=== PATIENT | female | born 1930 | race Caucasian/White ===

== ENCOUNTER 2017-06-03 15:43 | Emergency (ER) | payer MEDICARE ==
[~2017-06-03] VITALS: Ht 149.9 cm; Wt 61.2 kg
[2017-06-03 15:43] VITALS: BP_SYST 104
[2017-06-03] MEDS ORDERED: AZITHROMYCIN 250 MG TABLET PO ONE (18:00)
[2017-06-03] MEDS ORDERED: PREDNISONE 20 MG TABLET PO ONE (18:00)
[2017-06-03 19:50] VITALS: BP_SYST 128
== END 2017-06-03 19:50 ==
LOC: SED 15:43
DX: F41.9 Anxiety disorder, unspecified (principal); J44.9 Chronic obstructive pulmonary disease, unspecified; R09.02 Hypoxemia; N18.6 End stage renal disease; Z99.2 Dependence on renal dialysis; Z88.0 Allergy status to penicillin
CPT/HCPCS: 71010; 93005; 99283; J7512; Q0144

== ENCOUNTER 2019-07-26 07:58 | Inpatient (IN) | payer MEDICARE, OTHER ==
[~2019-07-26] VITALS: Ht 152.4 cm; Wt 68.2 kg
[2019-07-26 08:00] VITALS: BP_SYST 143
--- NOTE | 2019-07-26 08:05 | NUR ---
Patient to ER bed 6 to gown for evaluation. Side rails up.
--- NOTE | 2019-07-26 08:10 | NUR ---
Pt brought by ambulance SOB hx COPD, receiving breathing tx. Pt able to follow commands, O2 WNL.
[2019-07-26] MEDS ORDERED: IPRATROPIUM BROM 0.5 MG/2.5 ML VIAL.NEB (ATROVENT) INH ONE (08:15)
[2019-07-26] MEDS ORDERED: ALBUTEROL SULFATE 0.083% 2.5 MG/3 ML VIAL.NEB INH ONE (08:15)
--- NOTE | 2019-07-26 08:15 | NUR ---
ER at bedside examining patient.
--- NOTE | 2019-07-26 08:45 | NUR ---
EKG performed at by Morro YE. Physician given copy of EKG for review.
--- NOTE | 2019-07-26 08:45 | NUR ---
24 gauge angiocath placed to L hand. Use of asceptic technique. Opsite placed over site. Blood return noted. Blood for lab drawn from site. Flushed with 10 cc of normal saline. No evidence of infiltration noted. Patient tolerated well.
--- NOTE | 2019-07-26 09:00 | NUR ---
pt currently getting a breathing tx
[2019-07-26 09:03] LABS: BASOPHILS % (AUTO) 0.7 % (0.0-2.0); EOSINOPHILS # (AUTO) 0.1 K/uL (0.0-0.4); EOSINOPHILS % (AUTO) 1.1 % (0.0-4.0); HEMATOCRIT 42.8 % (36-48); HEMOGLOBIN 13.9 g/dL (12.0-16.0); LYMPHOCYTES % (AUTO) 19.2 % (20.5-51.5); MEAN CORPUSCULAR HEMOGLOBIN 32 pg (27-31); MEAN CORPUSCULAR HGB CONC 33 % (32-36); MEAN CORPUSCULAR VOLUME 98 fL (79.0-98.0); MONOCYTES # (AUTO) 0.3 K/uL (0.0-1.0); MONOCYTES % (AUTO) 6.7 % (1.7-9.3); NEUTROPHILS # (AUTO) 3.6 K/uL (1.8-7.7); NEUTROPHILS % (AUTO) 72.3 % (40.0-70.0); PLATELET COUNT (AUTO) 207 K/uL (130-430); RED BLOOD CELL COUNT(AUTO) 4.39 MIL/uL (4.2-6.2); RED CELL DISTRIBUTION WIDTH 15.4 % (9.0-15.0)
[2019-07-26 09:22] LABS: ANION GAP 7 (5-15); CALCIUM 9.1 mg/dL (8.4-11.0); CHLORIDE 103 mmol/L (98-107); CREATININE 3.82 mg/dL (0.55-1.30); GLUCOSE 107 mg/dL (70-99); POTASSIUM 4.4 mmol/L (3.5-5.1); SODIUM SERUM 140 mmol/L (136-145); UREA NITROGEN, BLOOD 21 mg/dL (8-21)
[2019-07-26] MEDS ORDERED: THEO600T PO (09:26)
[2019-07-26] MEDS ORDERED: ALBU8.5H8 INH (09:26)
[2019-07-26] MEDS ORDERED: SEREVENT INH (09:26)
[2019-07-26] MEDS ORDERED: LEVOFLOXACIN 500 MG/D5W 100 ML IV ONE (09:45)
[2019-07-26] MEDS ORDERED: DOCUSATE SODIUM 100 MG CAPSULE PO PRN (10:00)
[2019-07-26] MEDS ORDERED: ACETAMINOPHEN 650 MG/20.3 ML UDC PO PRN (10:00)
[2019-07-26] MEDS ORDERED: LevALBUTEROL HCL 1.25 MG/0.5 ML *CONC.* VIAL.NEB (XOPENEX CONC.) INH PRN (10:00)
[2019-07-26] MEDS ORDERED: NITROGLYCERIN 0.4 MG TAB.SUBL SL PRN (10:00)
[2019-07-26] MEDS ORDERED: ONDANSETRON HCL 4 MG/2 ML VIAL IVP PRN (10:00)
[2019-07-26] MEDS ORDERED: ALBUTEROL SULFATE 0.083% 2.5 MG/3 ML VIAL.NEB INH PRN (10:00)
[2019-07-26 10:06] LABS: TOTAL BILIRUBIN 0.4 mg/dL (0.0-1.0)
[2019-07-26 10:07] LABS: ALANINE AMINOTRANSFERASE 25 U/L (12-78); ALBUMIN 3.6 g/dL (3.4-4.8); ASPARTATE AMINOTRANSFERASE 19 U/L (10-37)
--- NOTE | 2019-07-26 10:08 | NUR ---
called for a tele bed.
--- NOTE | 2019-07-26 10:22 | NUR ---
second call for tele bed
--- NOTE | 2019-07-26 10:48 | NUR ---
CONSULTATION PAGED/CALLED Reason for Consultation: [] HD MGMT Person Who was Notified: [] DR PICKENS Consulting Physician: [] DR PICKENS Assembly Line Leader Specialty: [] X RAY EQUIPMENT SERVICER Ordering Physician: [] DR Radha LE
--- NOTE | 2019-07-26 10:49 | NUR ---
CONSULTATION PAGED/CALLED Reason for Consultation: [] ELEVATED TROP Person Who was Notified: [] MATILDA Consulting Physician: [] DR MARIN[employer]S GROUP Head Inspector And Center Marker Specialty: [] CARDIO Ordering Physician: [] DR Radha LE
--- NOTE | 2019-07-26 10:50 | NUR ---
CONSULTATION PAGED/CALLED Reason for Consultation: [] COPD EXAC Person Who was Notified: [] ANAMARIA Consulting Physician: [] DR NIEVES TOPPER PRESS OPERATOR AUTOMATIC FOR DR [facility] Warp Clamper Specialty: [] PULMO Ordering Physician: [] DR Radha LE
--- NOTE | 2019-07-26 11:10 | NUR ---
ADMITTING MEDSURG RECEIVED REPORT FROM ER NURSE. PT STABLE. NO ACUTE DISTRESS NOTED. DENIES SOB. DENIES CHEST PAIN. IV LINE INTACT AND PATENT. NO SIGNS OF INFILTRATION. BED ALARM ON. CALL LIGHT IN REACH. FAMILY AT BEDSIDE. ALL NEEDS MET. FALL AND ASPIRATION PRECAUTIONS NOTED. CONTINUE TO MONITOR. Addendum: 07/26/19 at 1813 by nAeta Denis RN PATIENT IS TELE NOT MEDSURG
--- NOTE | 2019-07-26 11:10 | NUR ---
Patient will be admitted to care of Dr Milan. Admitted to Med Surg/Tele unit. Will go to room 122B. Belongings list completed. Complete and up to date summary report printed. SBAR report to be given at bedside with opportunity for questions. Report given to Aneta YE
[2019-07-26 11:19] VITALS: BP_SYST 127
[2019-07-26] MEDS: cefTRIAXone 1 GM in D5W 50 ML IV SCH (12:50)
--- NOTE | 2019-07-26 12:50 | NUR ---
MEDICATIONS MEDICATIONS ADMINISTERED ORDERED. TOLERATED WELL. EDUCATION GIVEN. NO ACUTE DISTRESS NOTED. DENIES SOB. DENIES CHEST PAIN. HOB ELEVATED. CALL LIGHT IN REACH. ALL NEEDS MET. CONTINUE TO MONITOR. FALL AND ASPIRATION PRECAUTIONS IN PLACE.
[2019-07-26] MEDS: NORMAL SALINE 5 ML DISP.SYRIN IVF SCH ×2 (14:42→21:50)
--- NOTE | 2019-07-26 15:00 | NUR ---
NOTE PATIENT STABLE. READING BOOK IN BED. REQUESTED FOR GERMAN. ALL NEEDS MET. CALL LIGHT IN REACH. CONT TO MONITOR.
[2019-07-26 16:46] VITALS: BP_SYST 127
--- NOTE | 2019-07-26 17:00 | NUR ---
NOTE PATIENT RESTING IN BED. EASILY AROUSABLE. DENIES ANY PAIN. NO ACUTE DISTRESS. ALL NEEDS MET. CONT TO MONITOR. CALL LIGHT IN REACH
--- NOTE | 2019-07-26 18:54 | NUR ---
CLOSING NOTE PATIENT READING IN BED. NO ACUTE DISTRESS NOTED. BED ALARM ON. CALL LIGHT IN REACH. ALL NEEDS MET. FALL AND ASPIRATION PRECAUTIONS IN PLACE. WILL ENDORSE TO NOC NURSE.
--- NOTE | 2019-07-26 19:15 | NUR ---
OPENING NOTES RECEIVED PATIENT IN BED AAO X4. BREATHING UNLABORED. DENIES ANY PAIN AT THIS TIME. BED IN LOWEST LOCKED POSITION. CALL LIGHT WITH IN REACH. BED ALARM ON.
--- NOTE | 2019-07-26 19:25 | NUR ---
OOB PATIENT ASSISTED OUT OF BED TO THE REST ROOM AND HYGIENE CARE.
[2019-07-26 21:46] VITALS: BP_SYST 115
[2019-07-26] MEDS: methylPREDNISolone SOD SUCC 40 MG/ML VIAL IVP SCH (21:49)
[2019-07-26] MEDS: CARVEDILOL 6.25 MG TABLET (COREG) PO SCH (21:50)
--- NOTE | 2019-07-26 21:50 | NUR ---
MED PASS PATIENT DUE MEDICATIONS GIVEN AND TOLERATED. VITAL SIGNS STABLE. CALL LIGHT WITH IN REACH.
--- NOTE | 2019-07-27 00:30 | NUR ---
ROUNDS PATIENT RESTING IN BED. NO DISTRESS NOTED CALL LIGHT WITH IN REACH.
--- NOTE | 2019-07-27 03:00 | NUR ---
ROUNDS PATIENT CONDITION UNCHANGED.
[2019-07-27] MEDS: NORMAL SALINE 5 ML DISP.SYRIN IVF SCH ×3 (06:00→20:25)
[2019-07-27 06:13] LABS: BASOPHILS % (AUTO) 0.3 % (0.0-2.0); HEMATOCRIT 43.1 % (36-48); HEMOGLOBIN 13.9 g/dL (12.0-16.0); LYMPHOCYTES # (AUTO) 0.2 K/uL (1.0-5.5); LYMPHOCYTES % (AUTO) 3.6 % (20.5-51.5); MEAN CORPUSCULAR HEMOGLOBIN 32 pg (27-31); MEAN CORPUSCULAR HGB CONC 32 % (32-36); MEAN CORPUSCULAR VOLUME 99 fL (79.0-98.0); MONOCYTES # (AUTO) 0.1 K/uL (0.0-1.0); NEUTROPHILS # (AUTO) 6.4 K/uL (1.8-7.7); NEUTROPHILS % (AUTO) 95.1 % (40.0-70.0); PLATELET COUNT (AUTO) 212 K/uL (130-430); RED BLOOD CELL COUNT(AUTO) 4.38 MIL/uL (4.2-6.2); RED CELL DISTRIBUTION WIDTH 15.7 % (9.0-15.0); WHITE BLOOD COUNT (AUTO) 6.8 K/uL (4.8-10.8)
[2019-07-27 06:18] LABS: ANION GAP 7 (5-15); CALCIUM 8.7 mg/dL (8.4-11.0); CHLORIDE 100 mmol/L (98-107); CREATININE 4.58 mg/dL (0.55-1.30); GLUCOSE 164 mg/dL (70-99); POTASSIUM 5.4 mmol/L (3.5-5.1); SODIUM SERUM 138 mmol/L (136-145); UREA NITROGEN, BLOOD 31 mg/dL (8-21)
[2019-07-27 06:30] LABS: ALANINE AMINOTRANSFERASE 21 U/L (12-78); ALBUMIN 3.4 g/dL (3.4-4.8); ASPARTATE AMINOTRANSFERASE 16 U/L (10-37); TOTAL BILIRUBIN 0.2 mg/dL (0.0-1.0)
--- NOTE | 2019-07-27 06:55 | NUR ---
CLOSING NOTES PATIENT RESTING IN BED. BREATHING UNLABORED ON 3L NC. PATIENT NEEDS ATTENDED. BED IN LOWEST LOCKED POSITION WITH ALARM ON. CALL LIGHT WITH IN REACH.
--- NOTE | 2019-07-27 08:00 | NUR ---
awake alert oriented x4 no pain iv access intacl breakfast served with good appetite
[2019-07-27] MEDS: CARVEDILOL 6.25 MG TABLET (COREG) PO SCH ×2 (09:00→21:00)
--- NOTE | 2019-07-27 10:00 | NUR ---
dialysis started tolerated good
[2019-07-27] MEDS: methylPREDNISolone SOD SUCC 40 MG/ML VIAL IVP SCH ×2 (10:10→20:25)
[2019-07-27] MEDS: ASPIRIN 81 MG TAB.CHEW PO SCH (10:11)
[2019-07-27] MEDS: AZITHROMYCIN 250 MG TABLET PO SCH (10:13)
[2019-07-27] MEDS: cefTRIAXone 1 GM in D5W 50 ML IV SCH (10:15)
[2019-07-27] MEDS: ENOXAPARIN SODIUM 30 MG/0.3 ML SYRINGE SUBCUT SCH (10:25)
[2019-07-27 12:17] VITALS: BP_SYST 119
--- NOTE | 2019-07-27 13:00 | NUR ---
dialysis is over out was 2 liters per dialysis nurse no pain
--- NOTE | 2019-07-27 14:00 | NUR ---
appetite both for lunch and breakfast was good consumed 75 %
[2019-07-27 16:19] VITALS: BP_SYST 102
--- NOTE | 2019-07-27 16:30 | NUR ---
slept on and off
--- NOTE | 2019-07-27 17:57 | NUR ---
dinner served set up done self feeding with fair appetite
--- NOTE | 2019-07-27 19:20 | NUR ---
OPENING NOTES RECEIVED PATIENT IN BED AWAKE. DINNER TRAY UNTOUCHED PER PATIENT SHE DOES NOT FEEL LIKE EATING AT THIS TIME. TOLD PATIENT WILL LEAVE TRAY AT BED SIDE JUST IN CASE SHE CHANGE HER MIND. BED IN LOWEST LOCKED POSITION WITH ALARM ON. CALL LIGHT WITH IN REACH.
[2019-07-27 20:20] VITALS: BP_SYST 98
--- NOTE | 2019-07-27 20:25 | NUR ---
MED PASS PATIENT DUE MEDICATION GIVEN. VITAL SIGNS STABLE. DENIES PAIN. CALL LIGHT WITH IN REACH.
[2019-07-28 00:26] VITALS: BP_SYST 98
--- NOTE | 2019-07-28 01:00 | NUR ---
ROUNDS PATIENT RESTING IN BED. NO DISTRESS NOTED. CALL LIGHT WITH IN REACH. VITAL SIGNS STABLE.
--- NOTE | 2019-07-28 03:00 | NUR ---
ROUNDS PATIENT RESTING IN BED. BREATHING UNLABORED. CALL LIGHT WITH IN REACH.
--- NOTE | 2019-07-28 05:00 | NUR ---
ROUNDS PATIENT AWAKE IN BED. DENIES PAIN. NO DISTRESS NOTED. CALL LIGHT WITH IN REACH.
[2019-07-28] MEDS: NORMAL SALINE 5 ML DISP.SYRIN IVF SCH ×3 (06:00→20:56)
--- NOTE | 2019-07-28 06:28 | NUR ---
CLOSING NOTES PATIENT RESTING IN BED. BREATHING UNLABORED. PATIENT NEEDS ATTENDED. BED IN LOWEST LOCKED POSITION. CALL LIGHT WITH IN REACH.
--- NOTE | 2019-07-28 08:00 | NUR ---
remains very quiet today son has been calling re mothers condtion small appetite for breakfast
[2019-07-28] MEDS: ENOXAPARIN SODIUM 30 MG/0.3 ML SYRINGE SUBCUT SCH (09:00)
[2019-07-28] MEDS: CARVEDILOL 6.25 MG TABLET (COREG) PO SCH ×2 (09:00→20:55)
--- NOTE | 2019-07-28 10:00 | NUR ---
seen by Md explained to patient that she has fluid in the lung and why she has to remain with oxygen
[2019-07-28] MEDS: ASPIRIN 81 MG TAB.CHEW PO SCH (10:52)
[2019-07-28] MEDS: methylPREDNISolone SOD SUCC 40 MG/ML VIAL IVP SCH ×2 (10:52→20:55)
[2019-07-28] MEDS: AZITHROMYCIN 250 MG TABLET PO SCH (10:53)
[2019-07-28] MEDS: cefTRIAXone 1 GM in D5W 50 ML IV SCH (10:55)
[2019-07-28 12:46] VITALS: BP_SYST 100
[2019-07-28 16:28] VITALS: BP_SYST 119
--- NOTE | 2019-07-28 18:32 | NUR ---
dinner serve appetite fair
--- NOTE | 2019-07-28 18:34 | NUR ---
son updated regarding condition was happy
--- NOTE | 2019-07-28 19:10 | NUR ---
OPENING NOTES RECEIVED PATIENT IN BED AWAKE VISITOR AT BEDSIDE. BREATHING UNLABORED ON 02 4L NC. NO C/O PAIN AT THIS TIME. BED IN LOWEST LOCKED POSITION. CALL LIGHT WITH IN REACH.
[2019-07-28 20:49] VITALS: BP_SYST 115
--- NOTE | 2019-07-28 20:55 | NUR ---
MED PASS PATIENT DUE MEDICATIONS GIVEN. VITAL SIGNS STABLE. HS SNACK PROVIDED AND TOLERATED.
[2019-07-29 00:21] VITALS: BP_SYST 106
--- NOTE | 2019-07-29 00:45 | NUR ---
ROUNDS PATIENT AWAKE IN BED. NO DISTRESS NOTED. DENIES PAIN. CALL LIGHT WITH IN REACH. VITAL SIGNS STABLE.
--- NOTE | 2019-07-29 03:45 | NUR ---
ROUNDS PATIENT RESTING EYES CLOSED. BREATHING UNLABORED. CALL LIGHT WITH IN REACH.
--- NOTE | 2019-07-29 05:45 | NUR ---
BM PATIENT HAD BOWEL MOVEMENT SOFT BROWN STOOL MODERATE AMOUNT. INCONTINENCE CARE RENDERED. CHUX CHANGED. PATIENT PROVIDED WITH NEW GOWN AND BLANKETS.
[2019-07-29] MEDS: NORMAL SALINE 5 ML DISP.SYRIN IVF SCH ×3 (06:00→22:00)
[2019-07-29 06:20] LABS: ALANINE AMINOTRANSFERASE 20 U/L (12-78); ANION GAP 9 (5-15); ASPARTATE AMINOTRANSFERASE 7 U/L (10-37); CALCIUM 8.8 mg/dL (8.4-11.0); CHLORIDE 93 mmol/L (98-107); GLUCOSE 135 mg/dL (70-99); POTASSIUM 5.2 mmol/L (3.5-5.1); SODIUM SERUM 128 mmol/L (136-145); TOTAL BILIRUBIN 0.3 mg/dL (0.0-1.0); UREA NITROGEN, BLOOD 47 mg/dL (8-21)
--- NOTE | 2019-07-29 06:54 | NUR ---
Nutrition Update Andrea Scale 17 noted. Pt admitted for COPD exacerbation Diet: Renal Standard BMI: 27.3 kg/m2 RD to follow per nutrition care standards.
--- NOTE | 2019-07-29 07:30 | NUR ---
OPENING NOTES: PATIENT IS ASLEEP IN BED. NO SIGNS OF DISTRESS OR SHORTNESS OF BREATH NOTED. PATIENT IS TOLERATING OXYGEN AT 4 L NASAL CANNULA. IV SITE IS PATENT WITH NO SIGNS OF INFILTRATION. PATIENT IN STABLE CONDITION. SAFETY, FALL AND ASPIRATION PRECAUTIONS ARE IN PLACE. BED LOCKED IN LOWEST POSITION WITH CALL LIGHT IN REACH. WILL CONTINUE TO MONITOR PATIENT FOR ANY CHANGES.
[2019-07-29 08:00] VITALS: BP_SYST 104
[2019-07-29] MEDS: ASPIRIN 81 MG TAB.CHEW PO SCH (09:18)
[2019-07-29] MEDS: cefTRIAXone 1 GM in D5W 50 ML IV SCH (09:18)
[2019-07-29] MEDS: AZITHROMYCIN 250 MG TABLET PO SCH (09:18)
[2019-07-29] MEDS: methylPREDNISolone SOD SUCC 40 MG/ML VIAL IVP SCH ×2 (09:18→21:04)
[2019-07-29] MEDS: CARVEDILOL 6.25 MG TABLET (COREG) PO SCH ×2 (09:19→21:00)
[2019-07-29] MEDS: ENOXAPARIN SODIUM 30 MG/0.3 ML SYRINGE SUBCUT SCH (09:20)
--- NOTE | 2019-07-29 10:15 | NUR ---
RN ROUNDS: PATIENT IS AWAKE AND ALERT x2 LAYING DOWN IN BED. FAMILY AT BEDSIDE. PATIENT DENIES ANY PAIN AT THE MOMENT. NO SIGNS OF DISTRESS OR SHORTNESS OF BREATH NOTED. PATIENT IN STABLE CONDITION. WILL CONTINUE TO MONITOR PATIENT FOR ANY CHANGES.
--- NOTE | 2019-07-29 10:15 | NUR ---
PAGED PAGED MYRTLE GONZALES AT [phone] SPOKE WITH KENNETH.
--- NOTE | 2019-07-29 10:20 | NUR ---
CALLED: SPOKE WITH DR. MAR. AWARE OF CRITICAL LABS. NEW ORDERS GIVEN.
--- NOTE | 2019-07-29 10:30 | NUR ---
MD ROUNDS: DR. PICKENS MAKING HIS ROUNDS. AWARE OF PATIENT'S CONDITION. NEW ORDERS GIVEN.
--- NOTE | 2019-07-29 12:05 | NUR ---
RN ROUNDS: PATIENT IS ASLEEP IN BED. NO SIGNS OF DISTRESS OR SHORTNESS OF BREATH NOTED. PATIENT IS TOLERATING BIPAP WELL. PATIENT IN STABLE CONDITION. WILL CONTINUE TO MONITOR PATIENT FOR ANY CHANGES.
[2019-07-29 12:39] VITALS: BP_SYST 93
--- NOTE | 2019-07-29 14:15 | NUR ---
RN ROUNDS: PATIENT IS ASLEEP LAYING DOWN IN BED. PATIENT IS TOLERATING BIPAP WELL. NO SIGNS OF DISTRESS OR SHORTNESS OF BREATH NOTED. PATIENT IN STABLE CONDITION. WILL CONTINUE TO MONITOR PATIENT FOR ANY CHANGES.
[2019-07-29] MEDS ORDERED: HEPARIN SODIUM,PORCINE 5000 UNITS/ML VIAL MC ONE ×3 (14:45→15:15)
[2019-07-29] MEDS ORDERED: HEPARIN SODIUM,PORCINE 5000 UNITS/ML VIAL MC SCH (14:45)
--- NOTE | 2019-07-29 16:10 | NUR ---
RN ROUNDS: PATIENT IS ASLEEP IN BED. NO SIGNS OF DISTRESS OR SHORTNESS OF BREATH NOTED. PATIENT IS TOLERATING OXYGEN ON BIPAP. IV SITE INTACT WITH NO SIGNS OF INFILTRATION. PATIENT IN STABLE CONDITION. WILL CONTINUE TO MONITOR PATIENT FOR ANY CHANGES.
[2019-07-29 16:44] VITALS: BP_SYST 107
--- NOTE | 2019-07-29 18:09 | NUR ---
PAGED PAGED MYRTLE GONZALES AT [phone] SPOKE WITH DOMINIC.
--- NOTE | 2019-07-29 18:36 | NUR ---
CLOSING NOTES: PATIENT IS ASLEEP LAYING DOWN IN BED. NO SIGNS OF DISTRESS OR SHORTNESS OF BREATH NOTED. PATIENT IS TOLERATING OXYGEN ON AVAP WITH SETTINGS OF TV: 500 AND BACKUP RATE: 18. IV SITE IS PATENT WITH NO SIGNS OF INFILTRATION. PATIENT IN STABLE CONDITION. SAFETY, FALL AND ASPIRATION PRECAUTIONS REMAINED IN PLACE THROUGHOUT THE SHIFT. BED LOCKED IN LOWEST POSITION WITH CALL LIGHT IN REACH. WILL ENDORSE PATIENT CARE TO ONCOMING PIPE MACHINE OPERATOR NURSE.
[2019-07-29 20:00] VITALS: BP_SYST 103
--- NOTE | 2019-07-29 20:00 | NUR ---
ASSUMED CARE. RECEIVED ALERT,ORIENTED. AFEBRILE, NOT IN ACUTE DISTRESS. NO PAIN OR DISCOMFORT NOTED. WITH SALINE LOCK TO THE LEFT HAND SWOLLEN AND INFILTRATED. WILL ESTABLISH A NEW IV LINE. RICA CATHETER TO THE RIGHT SUBCLAVIAN INTACT. SAO2=97% ON AVAP WITH THE FOLLOWING SETTINGS HR=030 RATE=18 FIO2=40%. ABG DRAWN BY LAKIA YANES WILL NOTIFY WHEN RESULT IS AVAILABLE. SINUS RHYTHM @ 80'S/MINUTE ON THE MONITOR. VS STABLE, WILL CONTINUE TO MONITOR. NEEDS ATTENDED.
--- NOTE | 2019-07-29 20:25 | NUR ---
ABG RESULT IS BACK. WILL NOTIFY PULMO MD GONZALES.
--- NOTE | 2019-07-29 21:04 | NUR ---
GAUGE 22 IV LINE ESTABLISHED TO THE RIGHT HAND. DUE IV SOLUMEDROL GIVEN. COREG NOT GIVEN DUE TO OG=708/62.
--- NOTE | 2019-07-29 21:12 | NUR ---
Called Dr. Lynch's exchange for nurse Aj regarding ABGs' result. Left message with Bere.
--- NOTE | 2019-07-29 21:16 | NUR ---
SPOKE WITH , NOTIFIED HER OF LATEST ABG RESULT. ABG ORDERED IN THE MORNING.
--- NOTE | 2019-07-29 21:16 | NUR ---
Dr. Lynch called back and spoke with nurse Aj.
[2019-07-30] VITALS: BP_SYST 106
--- NOTE | 2019-07-30 | NUR ---
ASLEEP, NOT IN ANY KIND OF DISTRESS. NO PAIN OR DISCOMFORT NOTED. SIDE RAILS UP, CALL LIGHT WITHIN REACH. KEPT WARM AND COMFORTABLE. VS REMAIN STABLE. WILL CONTINUE TO MONITOR.
--- NOTE | 2019-07-30 04:00 | NUR ---
ASLEEP, NOT IN ACUTE DISTRESS. NO PAIN OR DISCOMFORT NOTED. NO CHANGE IN CONDITION.
--- NOTE | 2019-07-30 06:07 | NUR ---
FINGERSTICK BLOOD SUGAR RHNQW=833. 2 UNITS OF REGULAR INSULIN SQ GIVEN PER SLIDING SCALE. OTHER DUE MEDICATIONS ALSO GIVEN. Addendum: 07/30/19 at 0638 by [employer] commercial drafter ERROR. WRONG ENTRY.
[2019-07-30] MEDS: NORMAL SALINE 5 ML DISP.SYRIN IVF SCH ×3 (06:21→20:37)
--- NOTE | 2019-07-30 07:00 | NUR ---
ENDORSED CARE TO SATNAM YUNG.
--- NOTE | 2019-07-30 07:30 | NUR ---
OPENING NOTES: PATIENT IS RESTING IN BED WITH HER EYES CLOSED. NO SIGNS OF DISTRESS OR SHORTNESS OF BREATH NOTED. PATIENT IS TOLERATING OXYGEN ON AVAP WITH SETTING OF TV: 500, FIO2: 40%, AND RATE OF 18. IV SITE IS PATENT WITH NO SIGNS OF INFILTRATION. PATIENT IN STABLE CONDITION. SAFETY, FALL AND ASPIRATION PRECAUTIONS ARE IN PLACE. BED LOCKED IN LOWEST POSITION WITH CALL LIGHT IN REACH. WILL CONTINUE TO MONITOR PATIENT FOR ANY CHANGES.
[2019-07-30 08:07] VITALS: BP_SYST 107
[2019-07-30] MEDS: CARVEDILOL 6.25 MG TABLET (COREG) PO SCH ×2 (09:00→20:37)
[2019-07-30] MEDS: methylPREDNISolone SOD SUCC 40 MG/ML VIAL IVP SCH ×2 (09:34→20:36)
[2019-07-30] MEDS: ASPIRIN 81 MG TAB.CHEW PO SCH (09:34)
[2019-07-30] MEDS: AZITHROMYCIN 250 MG TABLET PO SCH (09:34)
[2019-07-30] MEDS: cefTRIAXone 1 GM in D5W 50 ML IV SCH (09:35)
[2019-07-30] MEDS: ENOXAPARIN SODIUM 30 MG/0.3 ML SYRINGE SUBCUT SCH (09:36)
--- NOTE | 2019-07-30 10:15 | NUR ---
RN ROUNDS: PATIENT IS ASLEEP IN BED. NO SIGNS OF DISTRESS OR SHORTNESS OF BREATH NOTED. PATIENT IN STABLE CONDITION. WILL CONTINUE TO MONITOR PATIENT FOR ANY CHANGES.
--- NOTE | 2019-07-30 10:49 | NUR ---
1000 PLACED AVAPS 500, BUR 18 DUE TO PT DESAT, SPO2 84-88. 1030 TITRATED FIO2 DOWN TO 30% PER MD MAR. PT TOLERATING WELL.
[2019-07-30 11:42] VITALS: BP_SYST 107
--- NOTE | 2019-07-30 12:10 | NUR ---
RN ROUNDS: PATIENT IS AWAKE AND ALERT x2 LAYING DOWN IN BED. FAMILY AT BEDSIDE. NO SIGNS OF DISTRESS OR SHORTNESS OF BREATH NOTED. PATIENT IN STABLE CONDITION. WILL CONTINUE TO MONITOR PATIENT FOR ANY CHANGES.
[2019-07-30 12:26] VITALS: BP_SYST 105
--- NOTE | 2019-07-30 14:15 | NUR ---
RN ROUNDS: PATIENT IS ASLEEP IN BED. FAMILY AT BEDSIDE. PATIENT IS TOLERATING OXYGEN ON AVAP. NO SIGNS OF DISTRESS OR SHORTNESS OF BREATH NOTED. PATIENT IN STABLE CONDITION. WILL CONTINUE TO MONITOR PATIENT FOR ANY CHANGES.
[2019-07-30 16:38] VITALS: BP_SYST 97
--- NOTE | 2019-07-30 18:41 | NUR ---
RN ROUNDS: PATIENT IS AWAKE AND ALERT x2 LAYING DOWN IN BED. FAMILY AT BEDSIDE. PATIENT IS TOLERATING OXYGEN ON AVAP. NO SIGNS OF DISTRESS OR SHORTNESS OF BREATH NOTED. PATIENT IN STABLE CONDITION. WILL CONTINUE TO MONITOR PATIENT FOR ANY CHANGES.
--- NOTE | 2019-07-30 20:10 | NUR ---
RN ROUNDS: PATIENT IS AWAKE AND ALERT x4 LAYING DOWN IN BED. PATIENT REFUSED MEDICATIONS AT THIS TIME. PATIENT IS TOLERATING OXYGEN ON 4 L NASAL CANNULA WITH NO SIGNS OF DISTRESS OR SHORTNESS OF BREATH. IV SITE IS PATENT WITH NO SIGNS OF INFILTRATION. PATIENT IN STABLE CONDITION. SAFETY, FALL AND ASPIRATION PRECAUTIONS ARE IN PLACE. BED LOCKED IN LOWEST POSITION WITH CALL LIGHT IN REACH. WILL CONTINUE TO MONITOR PATIENT FOR ANY CHANGES.
[2019-07-30 20:23] VITALS: BP_SYST 108
--- NOTE | 2019-07-30 22:20 | NUR ---
RN ROUNDS: PATIENT IS ASLEEP IN BED. NO SIGNS OF DISTRESS OR SHORTNESS OF BREATH. WILL CONTINUE TO MONITOR PATIENT FOR ANY CHANGES.
[2019-07-31 00:07] VITALS: BP_SYST 114
--- NOTE | 2019-07-31 03:29 | NUR ---
ENDORSED CARE TO CASSI BRICE. PATIENT IN STABLE CONDITION.
--- NOTE | 2019-07-31 03:30 | NUR ---
ASSUMPTION OF CARE: RECEIVED PT ASLEEP, EASILY AROUSED VIA VERBAL STIMULI, DX:INADEQUATE VENTILATION, R/T COPD EXACERBATION, BREATH SOUNDS ARE DIMINISHED, BREATHING UNLABORED, SATURATING 91% ON 3L O2 VIA NC, VS WNL, NO INDICATION OF PAIN, IV SITE INTACT, PATENT, NO REDNESS OR SWELLING, CALL LIGHT PLACED WITHIN REACH, WILL CONT' TO MONITOR AND ASSESS.
[2019-07-31] MEDS: NORMAL SALINE 5 ML DISP.SYRIN IVF SCH ×3 (06:42→20:53)
[2019-07-31 08:00] VITALS: BP_SYST 108
--- NOTE | 2019-07-31 08:15 | NUR ---
RT NOTES Pt. and son were educated on the need to utilized Bipap per ABG result, son stated "we will do what she wants". When asked if ok to put on bipap, pt. refused. CASSI Fuentes made aware.
[2019-07-31 08:39] LABS: BASOPHILS % (AUTO) 0.2 % (0.0-2.0); HEMATOCRIT 46.5 % (36-48); HEMOGLOBIN 15.1 g/dL (12.0-16.0); LYMPHOCYTES # (AUTO) 0.5 K/uL (1.0-5.5); LYMPHOCYTES % (AUTO) 4.9 % (20.5-51.5); MEAN CORPUSCULAR HEMOGLOBIN 32 pg (27-31); MEAN CORPUSCULAR HGB CONC 33 % (32-36); MEAN CORPUSCULAR VOLUME 97 fL (79.0-98.0); MONOCYTES % (AUTO) 10.2 % (1.7-9.3); NEUTROPHILS # (AUTO) 8.2 K/uL (1.8-7.7); NEUTROPHILS % (AUTO) 84.7 % (40.0-70.0); PLATELET COUNT (AUTO) 213 K/uL (130-430); RED BLOOD CELL COUNT(AUTO) 4.79 MIL/uL (4.2-6.2); WHITE BLOOD COUNT (AUTO) 9.7 K/uL (4.8-10.8)
[2019-07-31 09:00] LABS: ANION GAP 12 (5-15); CALCIUM 9.1 mg/dL (8.4-11.0); CHLORIDE 91 mmol/L (98-107); CREATININE 5.93 mg/dL (0.55-1.30); GLUCOSE 105 mg/dL (70-99); POTASSIUM 4.8 mmol/L (3.5-5.1); SODIUM SERUM 128 mmol/L (136-145); UREA NITROGEN, BLOOD 84 mg/dL (8-21)
--- NOTE | 2019-07-31 09:00 | NUR ---
MUD TANK OPERATOR: MORNING MEDS GIVEN, PER ORDERED BY Santiago, TOLERATED WELL, WILL CONT' WITH POC.
[2019-07-31] MEDS: AZITHROMYCIN 250 MG TABLET PO SCH (09:14)
[2019-07-31] MEDS: ASPIRIN 81 MG TAB.CHEW PO SCH (09:15)
[2019-07-31] MEDS: CARVEDILOL 6.25 MG TABLET (COREG) PO SCH ×2 (09:15→20:53)
[2019-07-31] MEDS: cefTRIAXone 1 GM in D5W 50 ML IV SCH (09:16)
[2019-07-31] MEDS: methylPREDNISolone SOD SUCC 40 MG/ML VIAL IVP SCH ×2 (09:16→20:52)
[2019-07-31] MEDS: ENOXAPARIN SODIUM 30 MG/0.3 ML SYRINGE SUBCUT SCH (09:18)
--- NOTE | 2019-07-31 10:00 | NUR ---
VISIT: AT BEDSIDE FOR ASSESSMENT OF PT, SPOKE TO PT AND FAMILY REGARDING POC, VERBALIZES UNDERSTANDING, NEW ORDERS GIVEN, WILL CONT' TO MONITOR AND ASSESS.
[2019-07-31 12:00] VITALS: BP_SYST 99
--- NOTE | 2019-07-31 13:35 | NUR ---
RT NOTES Per family's request, placed pt on 5L simple mask, due to pt is a "mouth breather". Dr Ang at bedside talking w/ family for possible hospice eval.
--- NOTE | 2019-07-31 14:00 | NUR ---
VISIT: AT BEDSIDE FOR ASSESSMENT OF PT, DISCUSSED POC WITH PT AND FAMILY, VERBALIZES UNDERSTANDING, NEW ORDERS GIVEN, CALL LIGHT REMAINS WITHIN REACH, WILL CONT' TO MONITOR AND ASSESS.
--- NOTE | 2019-07-31 15:00 | NUR ---
VISIT: AT BEDSIDE FOR ASSESSMENT OF PT, DISCUSSED WITH PT AND FAMILY POC, ALL QUESTIONS ANSWERED, VERBALIZES UNDERSTANDING, WILL CONT' TO MONITOR AND ASSESS.
--- NOTE | 2019-07-31 15:35 | NUR ---
Dietitian Recommendations * Recommend renal diet w/ Ensure Enlive TID (ONS provides 1050 kcal/day, 60 gm protein/day) LP, RD Please refer to Nutrition Assessment for details. Addendum: 07/31/19 at [address] Amended: Links added. Addendum: 07/31/19 at [address] CORRECTION: Dietitian Recommendations * Recommend renal diet w/ Ensure Enlive TID (ONS provides 1050 kcal/day, 60 gm protein/day) * Encourage increase PO intakes LP, RD
[2019-07-31 16:42] VITALS: BP_SYST 98
--- NOTE | 2019-07-31 18:00 | NUR ---
END OF SHIFT: PT ASLEEP INTERMITTENTLY, EASILY AROUSED VIA VERBAL STIMULI, CALL LIGHT WITHIN REACH, FAMILY AT BEDSIDE, NEEDS MET, WILL ENDORSE TO SERVER ADMINISTRATOR NURSE.
--- NOTE | 2019-07-31 19:40 | NUR ---
ROUNDS PATIENT RESTING COMFORTABLY IN BED, NOT IN DISTRESS, VITALS STABLE, NO SIGNS OF ANY PAIN AND DISCOMFORT NOTED. ASSESSMENT DONE AND DOCUMENTED. SEE FLOWSHEET. NEEDS ATTENDED TO. SAFETY AND FALL MEASURES IN PLACED. CALL LIGHT PLACED WITHIN REACH. FAMILY MEMBERS AT THE BEDSIDE.
[2019-07-31 20:00] VITALS: BP_SYST 121
--- NOTE | 2019-07-31 20:53 | NUR ---
MEDICATION DUE MEDICATIONS GIVEN ORDERED, TOLERATED WELL. WILL CONTINUE TO MONITOR.
--- NOTE | 2019-07-31 22:05 | NUR ---
NOTES ENDORSED TO CHERI YE FOR CONTINUATION OF PATIENT CARE. PATIENT ASLEEP AT THIS TIME, RESPIRATIONS EVEN AND UNLABORED, NO SIGNS OF ANY PAIN AND DISCOMFORT NOTED. CALL LIGHT PLACED WITHIN REACH.
--- NOTE | 2019-07-31 22:27 | NUR ---
Opening Note Received SBAR report from CASSI Tariq. Presently patient is resting in bed w/ eyes closed, no s/sx of distress noted, she has mask on 6L. IV is SL to right hand. Bed is locked in lowest position, side rails up 2x, bed alarm on and call light w/in reach.
[2019-08-01] VITALS (7 sets, daily range): BP systolic 102–132
--- NOTE | 2019-08-01 00:21 | NUR ---
Rounds - V/S Patient resting, no sign of distress. Vital taken and oxygen saturation 97% on 6L mask. Patient repositioned and turned.
--- NOTE | 2019-08-01 02:38 | NUR ---
RN ROUNDS Patient is lethargic, not aroused by voice, requires tapping on shoulder / shaking. Presently HR is 82 on telemonitor. She was repositioned and tolerated. Will continue to monitor.
--- NOTE | 2019-08-01 04:25 | NUR ---
RN rounds Patient resting w/eyes closed. Still is lethargic, V/S taken BP 132/56, HR 87, SpO2 95% on 6L simple mask. No facial grimace, or symptoms of pain.
--- NOTE | 2019-08-01 05:40 | NUR ---
Patient care Patient provided with jennifer-care and linen change. She was repositioned.
--- NOTE | 2019-08-01 06:00 | NUR ---
IV start IV was leaking blood, it was assessed and it did not flush. It was removed, catheter tip visualized intact and no active bleeding. A new IV # 24 angiocath was placed to RFA. Use of asceptic technique. Opsite placed over site. Blood return noted. Flushed with 10 cc of normal saline. No evidence of infiltration noted.
[2019-08-01] MEDS: NORMAL SALINE 5 ML DISP.SYRIN IVF SCH ×3 (06:36→21:27)
--- NOTE | 2019-08-01 07:00 | NUR ---
Closing note Patient resting in comfortable position, nonlabored breathing on 6L simple mask. Safety precautions in place and call light w/in reach. Needs met throughout shift, will endorse care to incoming nurse.
--- NOTE | 2019-08-01 07:30 | NUR ---
Opening note Patient resting in bed at this time, A/ox1, no complaints of pain. Patient is nonverbal at this time. No SOB. IV patent, and intact. No infiltration noted. On safety and aspiration precautions, HOB kept elevated, 3 side rails up, call light within reach. patient in stable condition. Will continue to monitor.
[2019-08-01 07:58] LABS: BASOPHILS % (AUTO) 0.1 % (0.0-2.0); EOSINOPHILS % (AUTO) 0.1 % (0.0-4.0); HEMATOCRIT 48.6 % (36-48); HEMOGLOBIN 15.5 g/dL (12.0-16.0); LYMPHOCYTES # (AUTO) 0.3 K/uL (1.0-5.5); LYMPHOCYTES % (AUTO) 3.4 % (20.5-51.5); MEAN CORPUSCULAR HEMOGLOBIN 31 pg (27-31); MEAN CORPUSCULAR HGB CONC 32 % (32-36); MEAN CORPUSCULAR VOLUME 98 fL (79.0-98.0); MONOCYTES # (AUTO) 0.4 K/uL (0.0-1.0); MONOCYTES % (AUTO) 4.6 % (1.7-9.3); NEUTROPHILS # (AUTO) 7.8 K/uL (1.8-7.7); NEUTROPHILS % (AUTO) 91.8 % (40.0-70.0); PLATELET COUNT (AUTO) 213 K/uL (130-430); RED BLOOD CELL COUNT(AUTO) 4.98 MIL/uL (4.2-6.2); WHITE BLOOD COUNT (AUTO) 8.6 K/uL (4.8-10.8)
[2019-08-01 08:36] LABS: ERYTHROCYTE SEDIMENTATION RATE 2 MM/HR (0-20)
[2019-08-01] MEDS: CARVEDILOL 6.25 MG TABLET (COREG) PO SCH ×2 (08:39→21:00)
[2019-08-01] MEDS: ASPIRIN 81 MG TAB.CHEW PO SCH (08:39)
[2019-08-01] MEDS: ENOXAPARIN SODIUM 30 MG/0.3 ML SYRINGE SUBCUT SCH (08:40)
[2019-08-01] MEDS: methylPREDNISolone SOD SUCC 40 MG/ML VIAL IVP SCH ×2 (08:40→21:26)
[2019-08-01 08:50] LABS: ANION GAP 12 (5-15); CALCIUM 8.8 mg/dL (8.4-11.0); CHLORIDE 93 mmol/L (98-107); GLUCOSE 134 mg/dL (70-99); PHOSPHORUS 12.4 mg/dL (2.7-4.5); SODIUM SERUM 130 mmol/L (136-145)
[2019-08-01 08:57] LABS: POTASSIUM 6.2 mmol/L (3.5-5.1)
[2019-08-01 08:59] LABS: CREATININE 7.69 mg/dL (0.55-1.30); UREA NITROGEN, BLOOD 116 mg/dL (8-21)
--- NOTE | 2019-08-01 09:00 | NUR ---
medications Unable to give PO medications. Patient noted to be unresponsive to verbal stimilu but responsive to physical stimuli. Patient unable to follow directions. PO medications held. All other medications given as ordered.
[2019-08-01] MEDS: cefTRIAXone 1 GM in D5W 50 ML IV SCH (09:07)
--- NOTE | 2019-08-01 10:52 | NUR ---
rounds patient resting in bed, family at bedside. Family aware of patients condition. Family wants comfort measures only. patient unresponsive to verbal stimuli.
--- NOTE | 2019-08-01 12:30 | NUR ---
Rounds Patient resting in bed, family at bedside. patient noted to be comfortable, no signs of pain noted. IV patent, and intact. No infiltration noted.
[2019-08-01] MEDS ORDERED: MORPHINE I.V. DRIP 100 ML IV PRN (14:00)
--- NOTE | 2019-08-01 14:00 | NUR ---
Morphine drip patients family requesting morphine drip for patient. MD aware. New orders noted.
--- NOTE | 2019-08-01 15:42 | NUR ---
Rounds Patient resting in bed at this time. Morphine drip infusing as ordered 1mg/hr. No adverse side effects. No infiltration noted. no signs of pain at this time.
--- NOTE | 2019-08-01 17:04 | NUR ---
rounds patient resting in bed at this time, resp even and unlabored. Morphine drip infusing as ordered. no signs of pain. patient in stable condition.
--- NOTE | 2019-08-01 18:43 | NUR ---
closing note Patient resting in bed at this time, A/ox1, no complaints of pain. Patient is nonverbal at this time. No SOB. IV patent, and intact. No infiltration noted. On safety and aspiration precautions, HOB kept elevated, 3 side rails up, call light within reach. patient in stable condition. All needs met.
--- NOTE | 2019-08-01 19:20 | NUR ---
Pt was received lying comfortably in bed lethargic and non-verbal. Three family members are visiting at the bedside. Morphine drip is infusing well in RFA at 1mg/hr. No respiratory distress noted and respirations 16. Oxygen is on via mask at 6L/min. Fall and safety precautions are in place.
--- NOTE | 2019-08-01 21:25 | NUR ---
Pt still lethargic. Morphine drip is infusing well at 1mg/hr. No facial grimacing noted. Oxygen is on at 6L/min via mask. Fall and safety precautions are in place.
--- NOTE | 2019-08-01 23:00 | NUR ---
Pt is resting comfortably in bed and remains lethargic. Morphine drip is infusing well. Fall and safety precautions are in place.
--- NOTE | 2019-08-02 01:00 | NUR ---
Pt is resting comfortably in bed. Morphine drip is infusing well. Fall and safety precautions are in place.
[2019-08-02 01:43] VITALS: BP_SYST 97
--- NOTE | 2019-08-02 03:00 | NUR ---
Pt is sleeping without any distress noted. Morphine drip is infusing well in RFA. Fall and safety precautions are in place.
--- NOTE | 2019-08-02 05:00 | NUR ---
Pt remains lethargic. Morphine drip is infusing well at 1mg/hr. No facial grimacing or respiratory distress noted. Oxygen is on at 6L/min via mask. Fall and safety precautions are in place.
[2019-08-02] MEDS: NORMAL SALINE 5 ML DISP.SYRIN IVF SCH ×2 (05:49→14:00)
--- NOTE | 2019-08-02 07:00 | NUR ---
Pt remains lethargic. All pt's needs were attended to. Pt was turned and repositioned q 2hrs. Morphine drip is infusing well at 1mg/hr and pt is comfortable. Oxygen is on at 6l/min via mask. Fall and safety precautions are in place. Will endorse to day shift nurse.
--- NOTE | 2019-08-02 07:30 | NUR ---
Opening note Patient resting in bed at this time, nonverbal, no signs of pain. patient noted with slow breathing. unresponsive to verbal stimuli or physical stimuli. Resp even and unlabored. IV patent, and intact, infusing morphine drip as ordered. No infiltration noted. On safety and aspiration precautions, HOB kept elevated, 3 side rails up, call light within reach. family aware of patients condition. Will continue to monitor.
[2019-08-02 08:00] VITALS: BP_SYST 60
[2019-08-02] MEDS: methylPREDNISolone SOD SUCC 40 MG/ML VIAL IVP SCH (08:32)
[2019-08-02] MEDS: ASPIRIN 81 MG TAB.CHEW PO SCH (08:33)
[2019-08-02] MEDS: CARVEDILOL 6.25 MG TABLET (COREG) PO SCH (08:33)
[2019-08-02] MEDS: ENOXAPARIN SODIUM 30 MG/0.3 ML SYRINGE SUBCUT SCH (08:33)
--- NOTE | 2019-08-02 09:00 | NUR ---
desaturation patients O2 sat at 86 on simple mask. Adjusted patient to nonrebreather for comfort. O2 sat 93% at this time. Morphine drip infusing as ordered. no adverse side effects.
--- NOTE | 2019-08-02 11:20 | NUR ---
rounds skin carer provided. Family at bedside. Patient resting comfortably. patient unresponsive to verbal stimuli. resp even and shallow. No other needs at this time.
[2019-08-02 12:21] VITALS: BP_SYST 55
--- NOTE | 2019-08-02 12:39 | NUR ---
Rounds patient resting in bed at this time, family at bedside. patient noted with shallow breathing, unresponsive to verbal and physical stimuli. Comfort measures provided. no other needs at this time.
--- NOTE | 2019-08-02 14:41 | NUR ---
Time of Patient noted with agonal breathing, charge nurse moreno at bedside. Patient asystole on the monitor. Confirmed no heart beat with two nurses. Family at bedside. paged .
--- NOTE | 2019-08-02 17:00 | NUR ---
[facility] patient body released to hand inspector from [facility].
== END 2019-08-02 14:41 | disposition expired | DRG 177 ==
LOC: SED 07:58 → STU 09:59
PROVIDERS: ADMIT Internal Medicine Hospice and Palliative Medicine; ATTEND Internal Medicine Hospice and Palliative Medicine
PROC: 5A1D70Z Performance of Urinary Filtration, Intermittent, Less than 6 Hours Per Day (ICD-10-PCS; 2019-07-27)
PROC: 5A09457 Assistance with Respiratory Ventilation, 24-96 Consecutive Hours, Continuous Positive Airway Pressure (ICD-10-PCS; principal; 2019-07-29)
PROC: 5A1D70Z Performance of Urinary Filtration, Intermittent, Less than 6 Hours Per Day (ICD-10-PCS; 2019-07-29)
DX: J69.0 Pneumonitis due to inhalation of food and vomit (principal); J96.01 Acute respiratory failure with hypoxia; J96.02 Acute respiratory failure with hypercapnia; N18.6 End stage renal disease; J44.1 Chronic obstructive pulmonary disease with (acute) exacerbation; I13.2 Hypertensive heart and chronic kidney disease with heart failure and with stage 5 chronic kidney disease, or end stage renal disease; J91.8 Pleural effusion in other conditions classified elsewhere; J44.0 Chronic obstructive pulmonary disease with (acute) lower respiratory infection; E87.6 Hypokalemia; I50.9 Heart failure, unspecified; Z66 Do not resuscitate; Z87.891 Personal history of nicotine dependence; Z90.710 Acquired absence of both cervix and uterus; Z99.2 Dependence on renal dialysis; Z88.0 Allergy status to penicillin; Z79.899 Other long term (current) drug therapy; Z91.15 Patient's noncompliance with renal dialysis; Z91.19 Patient's noncompliance with other medical treatment and regimen
CPT/HCPCS: 36415; 36600; 71045; 80048; 80053; 82803-TC; 83605; 83735-TC; 83880; 84100-TC; 84484; 85025; 85651-TC; 86140; 86710; 87040-TC; 87081; 90935; 90937; 93005; 93306; 94640; 94660; 96365; 99285; G0378; J0696; J1030; J1644; J1650; J1956; J2270; J7030; J7060; J7612; J7613; Q0144